=== PATIENT | male | born 1975 | race Caucasian/White ===

== ENCOUNTER 2019-01-29 10:29 | Emergency (ER) | payer MEDICARE, OTHER ==
[~2019-01-29] VITALS: Ht 182.9 cm; Wt 107.0 kg
[2019-01-29 11:11] VITALS: BP 137/85
[2019-01-29] MEDS ORDERED: CEPH-264 PO (11:40)
--- NOTE | 2019-01-29 11:41 | PHYS DOC ---
Past Medical History Past Medical History: Anxiety, Depression, Hypertension, Other Additional Past Medical Histor: insomnia Past Surgical History: No Surgical History Alcohol Use: Occasionally Drug Use: None Adult General Chief Complaint Chief Complaint: ABSCESS HPI HPI Patient is a 43 year old male who presents with gets frequent boils and abscesses. Patient has the start of a abscess on the right lower forearm just distal to the elbow. Patient states for the last couple of days he's noticed is draining purulent fluid. Patient states that he thinks is also been feeling chills but has not taken his temperature. Patient denies pain. Review of Systems Review of Systems Constitutional: Denies fever or chills [] Musculoskeletal: Denies back pain or joint pain [] Integument: abscess. Denies rash or skin lesions [] Neurologic: Denies headache, focal weakness or sensory changes [] All other systems were reviewed and found to be within normal limits, except as documented in this note. Allergies Allergies Allergies Coded Allergies Type Severity Reaction Last Updated Verified metoprolol Adverse Reaction Intermediate "MAKES ME HAVE HIGH BLOOD PRESSURE" 01/29/19 Yes Physical Exam Physical Exam Constitutional: Well developed, well nourished, no acute distress, non-toxic appearance. [] Skin: Nickel sized abscess to Lower forearm distal to elbow. Warm, dry, no erythema, no rash. [] Extremities: No tenderness, no cyanosis, no clubbing, ROM intact, no edema. [] Neurologic: Alert and oriented X 3, normal motor function, normal sensory function, no focal deficits noted. [] Psychologic: Affect normal, judgement normal, mood normal. [] Current Patient Data Vital Signs Vital Signs Date Time Temp Pulse Resp B/P (MAP) Pulse Ox O2 Delivery O2 Flow Rate FiO2 01/29/19 11:11 98.7 86 20 137/85 (102) 99 Room Air 98.7 EKG EKG [] Radiology/Procedures Radiology/Procedures [] Course & Med Decision Making Course & Med Decision Making Patient is a 43 year old male who presents with gets frequent boils and abscesses. Patient has the start of a abscess on the right lower forearm just distal to the elbow. Patient states for the last couple of days he's noticed is draining purulent fluid. Patient states that he thinks is also been feeling chills but has not taken his temperature. Patient denies pain. Patient has a nickel size pink in color slightly raised abscess that looks like it is scabbed over. Currently there is no drainage seen. There is no tenderness to palpation. There is no associated cellulitis. There is no swelling to the extremity. Radial pulses strong and present. Cap refill less than 3 seconds. Skin pink warm and dry. Patient is able to use the extremity appropriately. Range of motion in all joints. There is no heat to the area or red streaking. Patient is afebrile. Dragon Disclaimer Dragon Disclaimer This electronic medical record was generated, in whole or in part, using a voice recognition dictation system. Departure Departure Impression: Primary Impression: Abscess Disposition: HOME, SELF-CARE Condition: STABLE Referrals: JUAN CARLOS WEAVER MD (PCP) Patient Instructions: Abscess Additional Instructions: Follow up with your doctor in the next 2 days. Take medications as prescribed. Scripts Cephalexin (KEFLEX) 500 Mg Capsule 1 CAP PO TID, #30 CAP Prov: ELPIDIO LAWTON APRN 01/29/19 ELPIDIO LAWTON APRN Jan 29, 2019 11:41
[2019-01-30] MEDS ORDERED: DIPH25CA58 PO (02:02)
[2019-01-30] MEDS ORDERED: PRED20TA PO (02:02)
== END 2019-01-29 12:02 | disposition home or self-care (01) ==
LOC: ER 10:29
DX: L02.413 Cutaneous abscess of right upper limb (principal); I10 Essential (primary) hypertension; Z88.8 Allergy status to other drugs, medicaments and biological substances
CPT/HCPCS: 99283

== ENCOUNTER 2019-01-30 01:10 | Emergency (ER) | payer MEDICARE, OTHER ==
[~2019-01-30] VITALS: Ht 182.9 cm; Wt 102.5 kg
[~2019-01-30 01:10] MED LIST: CEPH-264 PO
[2019-01-30] MEDS ORDERED: DEXAMETHASONE SOD PHOS 20 MG/5 ML VIAL. IV ONE (02:00)
[2019-01-30] MEDS ORDERED: diphenhydrAMINE 50 MG/ML VIAL IVP ONE (02:00)
[2019-01-30] MEDS ORDERED: LIDO:MAALOX 1:1 20 ML SINGLE DOSE. PO ONE (02:00)
[2019-01-30] MEDS ORDERED: PRED20TA PO (02:02)
[2019-01-30] MEDS ORDERED: DIPH25CA58 PO (02:02)
--- NOTE | 2019-01-30 02:02 | PHYS DOC ---
Past Medical History Past Medical History: Anxiety, Depression, Hypertension Additional Past Medical Histor: insomnia Past Surgical History: No Surgical History Alcohol Use: None Drug Use: None Adult General Chief Complaint Chief Complaint: ALLERGIC REACTION HPI HPI 43-year-old male presents with report of throat irritation/swelling after starting Keflex for concern for infection earlier today. Patient had been seen for elbow swelling and tenderness that was thought to be possibly secondary to infection. Denies fever or chills. Denies rash. Patient reports is able to handle his own secretions. Review of Systems Review of Systems Constitutional: Denies fever or chills Eyes: Denies redness or eye pain HENT: Denies nasal congestion; reports sore throat and sensation of throat "closing" Respiratory: Denies cough or shortness of breath Cardiovascular: Denies chest pain or palpitations GI: Denies abdominal pain, nausea, or vomiting : Denies dysuria or hematuria Musculoskeletal: Denies back pain; reports right elbow swelling Integument: Denies rash or skin lesions Neurologic: Denies headache, focal weakness or sensory changes Complete systems were reviewed and found to be within normal limits, except as documented in this note. Current Medications Current Medications Current Medications Medications (Trade) Dose Ordered Sig/Keith Start Time Stop Time Status Last Admin Dose Admin Dexamethasone Sodium Phosphate (Decadron) 10 mg 1X ONCE 01/30/19 02:00 01/30/19 02:01 DC 01/30/19 02:12 10 MG Diphenhydramine HCl (Benadryl) 25 mg 1X ONCE 01/30/19 02:00 01/30/19 02:01 DC 01/30/19 02:12 25 MG Multi-Ingredient Mouthwash/Gargle (Gi Cocktail) 20 ml 1X ONCE 01/30/19 02:00 01/30/19 02:01 DC 01/30/19 02:12 20 ML Allergies Allergies Allergies Coded Allergies Type Severity Reaction Last Updated Verified cephalexin Allergy Mild 01/30/19 Yes metoprolol Adverse Reaction Intermediate "MAKES ME HAVE HIGH BLOOD PRESSURE" 01/29/19 Yes Physical Exam Physical Exam Constitutional: Well developed, well nourished, no acute distress, non-toxic appearance HENT: Normocephalic, atraumatic, oropharynx moist, pharynx appears normal wit hout any swelling, no stridor, handling secretions well Eyes: Conjunctiva normal, no discharge Neck: Normal range of motion, no tenderness, supple Cardiovascular: Heart rate normal, regular rhythm Lungs & Thorax: Bilateral breath sounds clear to auscultation, no wheezing Abdomen: Soft, no tenderness Skin: Warm, dry, no erythema, no rash Extremities: No tenderness, ROM intact, right olecranon bursitis noted without significant erythema, increased warmth noted Neurologic: Alert and oriented X 3, no focal deficits noted Psychologic: Affect anxious, judgement normal Current Patient Data Vital Signs Vital Signs Date Time Temp Pulse Resp B/P (MAP) Pulse Ox O2 Delivery O2 Flow Rate FiO2 01/30/19 02:13 85 14 134/94 (107) 98 01/30/19 01:30 99.0 Room Air 99.0 EKG EKG [] Radiology/Procedures Radiology/Procedures [] Course & Med Decision Making Course & Med Decision Making Patient presents with history of present illness and physical exam consistent for right olecranon bursitis for which patient had been previously prescribed some antibiotic. There was concern that antibiotic might have caused some type of allergic reaction. Patient's vital signs stable. No stridor or respiratory distress noted. Patient handled secretions well. Patient advised to discontinue antibiotic. Symptomatic treatment provided with oral steroid and Benadryl. Tyler bandage provided. Patient stable for discharge with outpatient follow-up with PCP/orthopedics. Discussed findings and plan with patient, who acknowledges understanding and agreement. Dragon Disclaimer Dragon Disclaimer This electronic medical record was generated, in whole or in part, using a voice recognition dictation system. Splinting Splinting : Location: right elbow Pre-Made Type: Tyler bandage Pre-Proc Neuro Vasc Exam: normal Post-Proc Neuro Vasc Exam: normal, unchanged from pre-exam Departure Departure Impression: Primary Impression: Allergic pharyngitis Additional Impression: Olecranon bursitis of right elbow Disposition: 01 HOME, SELF-CARE Condition: STABLE Referrals: JUAN CARLOS WEAVER MD (PCP) SONALI LORD MD Patient Instructions: Olecranon Bursitis, [id number]-[id number], Sore Throat, [id number] Additional Instructions: Cannot fully exclude allergy. Please take steroid as prescribed and Benadryl as needed for itching or rash. Scripts Diphenhydramine Hcl (BENADRYL) 25 Mg Capsule 1 CAP PO QID PRN for ALLERGIES, #20 CAP Prov: KARLEY MITTAL DO 01/30/19 Prednisone (PREDNISONE) 20 Mg Tablet 2 TAB PO DAILY, #8 TAB Start this prescription tomorrow, Tue01/31/19 Prov: KARLEY MITTAL DO 01/30/19 Problem Qualifiers KARLEY MITTAL DO Jan 30, 2019 02:02
[2019-01-30 02:13] VITALS: BP 134/94
== END 2019-01-30 02:22 | disposition home or self-care (01) ==
LOC: ER 01:10
DX: J02.9 Acute pharyngitis, unspecified (principal); T36.1X5A Adverse effect of cephalosporins and other beta-lactam antibiotics, initial encounter; M70.21 Olecranon bursitis, right elbow; I10 Essential (primary) hypertension; Z88.1 Allergy status to other antibiotic agents; Z88.8 Allergy status to other drugs, medicaments and biological substances; Y92.89 Other specified places as the place of occurrence of the external cause
CPT/HCPCS: 96374; 96375; 99284; J1100; J1200